=== PATIENT | male | born 1950 | race Caucasian/White ===

== ENCOUNTER 2017-11-07 06:15 | Day surgery (SDC) | payer MEDICARE, OTHER ==
[~2017-11-07] VITALS: Ht 190.5 cm; Wt 121.6 kg
[~2017-11-07 06:15] MED LIST: ALEVE220 M2 PO; ALLOPURINOL300 MG OR; COLCHICINE PO; COLCHICINE0.6 MG OR; COLCHICINE0.6 MG PO; COLCRYS0.6 MG PO; FISH OIL1000 MG PO; FLEXERIL PO; FLEXERIL5 M1 PO; FLUARIX QUADRIV1 INJ IM; INDOMETHACIN50 MG OR; IRON CHEWS; IRON18 M1 PO; MELOXICAM15 MG PO; MILK THISTLE140 MG OR; MITIGARE0.6 MG PO; MULTI VIT PO; NAPROSYN125 MG/5 M; NORVASC10 M1 PO; NORVASC10 MG OR; OMEPRAZOLE20 M2 PO; PREVACID30 M1 PO; PRILOSEC40 MG PO; QUNOL COQ10/UB100 MG PO; SHARK LIVER OIL PO; VICODIN1 TAB OR; VITAMIN D1000 UNI1 OR
[2017-11-07 07:58] VITALS: BP 108/62
== END 2017-11-07 08:10 | disposition home or self-care (01) ==
LOC: ENDO 06:15 → ORM 08:30 → ENDO 08:30
PROVIDERS: ATTEND Surgery
PROC: 0DJD8ZZ Inspection of Lower Intestinal Tract, Via Natural or Artificial Opening Endoscopic (ICD-10-PCS; principal; 2017-11-07)
PROC: 0DB48ZX Excision of Esophagogastric Junction, Via Natural or Artificial Opening Endoscopic, Diagnostic (ICD-10-PCS; 2017-11-07)
PROC: 0DB78ZX Excision of Stomach, Pylorus, Via Natural or Artificial Opening Endoscopic, Diagnostic (ICD-10-PCS; 2017-11-07)
DX: Z12.11 Encounter for screening for malignant neoplasm of colon (principal); K57.30 Diverticulosis of large intestine without perforation or abscess without bleeding; K22.70 Barrett's esophagus without dysplasia; K29.50 Unspecified chronic gastritis without bleeding; K21.9 Gastro-esophageal reflux disease without esophagitis; K29.80 Duodenitis without bleeding; K44.9 Diaphragmatic hernia without obstruction or gangrene; I10 Essential (primary) hypertension; M10.9 Gout, unspecified
CPT/HCPCS: 43239; G0121

== ENCOUNTER → 2018-08-05 | Outpatient (REF) | payer MEDICARE, OTHER ==
[2018-08-05 09:12] LABS: ALKALINE PHOSPHATASE 119 u/l (38-126); ANION GAP 14 (6-22 (CALC)); BILIRUBIN, TOTAL 1.1 mg/dL (0.0-1.4); BUN 24 mg/dL (8-23); BUN/CREATININE RATIO 22 (12-20 (CALC)); CALCULATED LDLCHOLESTEROL 59 mg/dL (62-129 (CALC)); CARBON DIOXIDE 26 mmol/l (22-30); CHLORIDE 106 mmol/l (95-108); CHOLESTEROL HDL RATIO 2.1 (<4.4 (CALC)); CREATININE 1.1 mg/dL (0.7-1.3); GFR > 60 ML/MIN (>=60 (CALC)); GFR FOR AFR.AMER. > 60 ML/MIN (>=60 (CALC)); HDL CHOLESTEROL 72 mg/dL (>=40); POTASSIUM 4.3 mmol/l (3.5-5.1); SGOT/AST 27 u/l (19-48); SODIUM 141 mmol/l (137-146); TOTAL CHOLESTEROL 148 mg/dl (0-199); TOTAL PROTEIN 6.5 g/dL (6.3-8.2); TOTAL TRIGLYCERIDES 88 mg/dl (30-149); VLDL CHOLESTROL 18 mg/dl (4-45 (CALC))
[2018-08-05 09:38] LABS: URINE BILIRUBIN - DIPSTICK NEGATIVE (NEGATIVE); URINE BLOOD DIPSTICK NEGATIVE (NEGATIVE); URINE COLOR YELLOW; URINE GLUCOSE - DIPSTICK NEGATIVE (NEGATIVE); URINE KETONE NEGATIVE (NEGATIVE); URINE LEUK ESTERASE NEGATIVE (NEGATIVE); URINE NITRITE - DIPSTICK NEGATIVE (Negative); URINE PROTEIN - DIPSTICK NEGATIVE (NEG-TRACE); URINE SPECIFIC GRAVITY 1.015; URINE UROBILINOGEN - DIPSTICK 0.2 E.U./dL (0.2)
[2018-08-05 09:39] LABS: TSH, 3RD GENERATION 2.32 uIU/mL (0.47 - 4.68)
[2018-08-05 10:28] LABS: HEMATOCRIT 42.7 % (39.0-50.0); HEMOGLOBIN 14.6 g/dl (14.0-18.0); MEAN CELL VOLUME 104.4 fL CALC (80.0-100.0); MEAN CORPUSCULAR HGB 35.7 pG CALC (26.0-32.0); MEAN CORPUSCULAR HGB CONC 34.2 g/L CALC (32.0-36.0); RED BLOOD COUNT 4.09 mill/uL (4.70-6.10); RED CELL DISTRI WIDTH 13.4 % (11.5-15.5)
== END | disposition home or self-care (01) ==
LOC: LAB 07:59
PROVIDERS: ATTEND Nurse Practitioner Adult Health
DX: D46.9 Myelodysplastic syndrome, unspecified (principal); K21.9 Gastro-esophageal reflux disease without esophagitis; K22.70 Barrett's esophagus without dysplasia; Z79.899 Other long term (current) drug therapy; I10 Essential (primary) hypertension

== ENCOUNTER 2022-08-13 13:47 | Emergency (ER) | payer MEDICARE, OTHER ==
[~2022-08-13] VITALS: Ht 190.5 cm; Wt 99.3 kg
[2022-08-13] VITALS (8 sets, daily range): BP systolic 116–129; BP diastolic 55–70
[2022-08-13 15:02] LABS: EOS% 2.8 % (0-8); HEMATOCRIT 42.6 % (39.0-50.0); HEMOGLOBIN 14.5 g/dl (14.0-18.0); MEAN CELL VOLUME 103.1 fL CALC (80.0-100.0); MEAN CORPUSCULAR HGB 35.1 pG CALC (26.0-32.0); MONO% 5.6 % (2-13); NEUT# 0.6 thou/uL (1.82-7.42); NEUT% 84.6 % (42-76); RED BLOOD COUNT 4.13 mill/uL (4.70-6.10); RED CELL DISTRI WIDTH 13.7 % (11.5-15.5)
[2022-08-13 15:04] LABS: BUN 15 mg/dL (8-23); BUN/CREATININE RATIO 17 (12-20 (CALC)); CHLORIDE 108 mmol/l (95-108); CREATININE 0.9 mg/dL (0.7-1.3); GFR FOR AFR.AMER. > 60 ML/MIN (>=60 (CALC)); GFR OTHER RACES > 60 ML/MIN (>=60 (CALC)); POTASSIUM 4.1 mmol/l (3.5-5.1); SODIUM 138 mmol/l (137-146)
[2022-08-13 15:05] LABS: ALKALINE PHOSPHATASE 263 u/l (38-126); ANION GAP 13 (6-22 (CALC)); BILIRUBIN, TOTAL 3.4 mg/dL (0.2-1.3); CARBON DIOXIDE 21 mmol/l (22-30); SGOT/AST 304 u/l (19-48)
== END 2022-08-13 17:47 | disposition short-term general hospital (02) ==
LOC: ED 13:47
PROVIDERS: Emergency Medicine
DX: D61.818 Other pancytopenia (principal); R68.83 Chills (without fever); I10 Essential (primary) hypertension; M10.9 Gout, unspecified; F17.220 Nicotine dependence, chewing tobacco, uncomplicated; Z20.822 Contact with and (suspected) exposure to COVID-19
CPT/HCPCS: J1956

== ENCOUNTER 2023-04-16 07:10 | Day surgery (SDC) | payer MEDICARE, OTHER ==
[~2023-04-16] VITALS: Ht 190.5 cm; Wt 551.6 kg
[2023-04-16 09:48] VITALS: BP 130/74
== END 2023-04-16 09:45 | disposition home or self-care (01) ==
LOC: ORM 07:10
PROVIDERS: ATTEND Internal Medicine Gastroenterology
PROC: 0DB58ZX Excision of Esophagus, Via Natural or Artificial Opening Endoscopic, Diagnostic (ICD-10-PCS; principal; 2023-04-16)
PROC: 0DB78ZX Excision of Stomach, Pylorus, Via Natural or Artificial Opening Endoscopic, Diagnostic (ICD-10-PCS; 2023-04-16)
DX: K22.70 Barrett's esophagus without dysplasia (principal); K29.70 Gastritis, unspecified, without bleeding; K31.9 Disease of stomach and duodenum, unspecified; K44.9 Diaphragmatic hernia without obstruction or gangrene; I10 Essential (primary) hypertension